=== PATIENT | female | born 1995 | race Caucasian/White ===

== ENCOUNTER 2016-12-16 12:22 | Emergency (ER) | payer OTHER ==
[~2016-12-16 12:22] MED LIST: METO10TA PO
[2016-12-16 13:01] VITALS: BP 118/57; PULSE 82
[2016-12-16 13:02] VITALS: RESP 18
--- NOTE | 2016-12-16 13:18 | PD ---
HPI Chief Complaint Left calf pain, and it feels like a have a bladder infection Date Seen: Dec 16, 2016 Time Seen: 13:00 Travel History International Travel<30 Days: No Contact w/Intl Traveler<30Days: No Known Affected Area: No History of Present Illness HPI 21-year-old 3 para 2 at 17 weeks 1 day gestation with twins who reports a 12 hour history of left calf pain. She denies any trauma to this area. She denies redness or swelling. She also feels like she might have a bladder infection because of lower abdominal pressure and urgency. She denies dysuria or hematuria. She associates nausea without vomiting. She's had no diarrhea, fever. She has found nothing that alleviates her symptoms. Para: 2 : 3 History Past Medical History Narrative Medical She has a history of depression for which she is to take medication. She is now not on medication. She reports feeling mildly depressed. Medical History: Denies Significant Hx Obstetric History Obstetric History 2 term vaginal deliveries without complication This is a twin gestation but we do not have documentation regarding the type of twins. Past Surgical History Surgical History: No Previous Surgery Family History Family History: Negative Social History Alcohol Use: No Tobacco Use: Yes (2 per day) Substance Abuse: No Allergies-Medications (Allergen,Severity, Reaction): Coded Allergies: No Known Allergies (Verified , 09/26/16) Home Meds Active Scripts Metoclopramide Hcl (Reglan)10 Mg Tab10 Mg PO Q6H PRN (NAUSEA) #7 TAB NAUSEA AND VOMITING Prov:Kaylie Monroe DO 09/26/16 Review of Systems Except as stated in HPI: all other systems reviewed are Neg Physical Exam Narrative GENERAL: Well-nourished, well-developed patient. SKIN: Warm and dry. HEAD: Normocephalic and atraumatic. EYES: No scleral icterus. No injection or drainage. ENT: No nasal drainage noted. Mucous membranes pink. Airway patent. NECK: Supple, trachea midline. No JVD. CARDIOVASCULAR: Regular rate and rhythm without murmurs, gallops, or rubs. RESPIRATORY: Breath sounds equal bilaterally. No accessory muscle use. BREASTS: Bilateral exam showed no masses , no retractions, no nipple discharge. ABDOMEN/GI: Abdomen soft, non-tender, bowel sounds present, no rebound, no guarding Gravid to [-] weeks size Fundal Height: [-u] GENITOURINARY: External Genitalia: intact and normal in appearance BUS glands: [-] Cervix: [-] Dilatation: [-] Effacement: [-] Station: [-] Presentation: [-] Membranes: [intact or ruptured] Uterine Contractions: [-] FHT's: Category: [-] Baseline: [-Viable twin gestation by ultrasound,] Reactive: [-] Variability: [-] Decels: [-] EXTREMITIES: No cyanosis or edema. The left calf is tender. There is a bruise on the medial aspect of the left knee. BACK: Nontender without obvious deformity. No CVA tenderness. NEUROLOGICAL: Awake and alert. Motor and sensory grossly within normal limits. Five out of 5 muscle strength in all muscle groups. Normal speech. Data Data Vital Signs Reviewed: Yes Orders Vital Signs (Adult) .ON ADMISSION (12/16/16 12:55) Urinalysis - C+S If Indicated (12/16/16 12:55) Us Leg Venous Doppler (12/16/16 ) MDM Medical Record Reviewed: Yes Narrative Course / MDM Assessment: Routine week twin gestation with left calf tenderness, rule out DVT and urinary symptoms, rule out UTI Plan: Venous Doppler of left lower extremity to rule out DVT Urinalysis Addendum: UA suggestive of UTI, empiric fosfomycin 3g Doppler study is normal Diagnosis Diagnosis: Primary Impression: Twin gestation in second trimester Additional Impressions: Smoking 1/2 pack a day or less UTI (urinary tract infection) Disposition: 01 DISCHARGE HOME Condition: Good Jose Gonzalez MD Dec 16, 2016 13:18
[2016-12-16 13:34] LABS: BLOOD, URINE NEG (NEG); COMMENT (UR) CULTURE INDICATED; CULTURE IF INDICATED CULTURE INDICATED; GLUCOSE,URINE NEG (NEG); KETONE, URINE NEG (NEG); MUCUS URINE FEW /lpf (OCC); NITRITE,URINE NEG (NEG); SQUAMOUS EPITHELIAL CELL URINE 1 /hpf (0-5); URINE COLOR LIGHT-YELLOW (YELLW/STRAW)
--- NOTE | 2016-12-16 14:27 | RADRPT ---
EXAM DATE/TIME: 12/16/2016 14:08 [facility] COMPARISON: No previous studies available for comparison. INDICATIONS : Left calf pain. MEDICAL HISTORY : . SURGICAL HISTORY : No significant surgical history. ENCOUNTER: Initial ACUITY: 2 day PAIN SCORE: 4/10 LOCATION: Left leg. TECHNIQUE: Venous ultrasound of the leg was performed from the inguinal ligament to the proximal calf. Real-mukesh e, color Doppler and spectral tracing, compression and augmentation techniques were used. FINDINGS: There is normal compressibility of the deep venous system from the inguinal region to the proximal ca lf. No echogenic clot is seen in the lumen of the common femoral, femoral, popliteal, and posterior tibial veins. There is a normal response of the venous system to proximal and distal augmentation an d respiration. CONCLUSION: Normal examination. Jose Vela MD on December 16, 2016 at 14:25 Board Certified Radiologist. This report was verified electronically.
== END 2016-12-16 15:05 | disposition home or self-care (01) ==
LOC: HOBED 12:22
DX: O23.42 Unspecified infection of urinary tract in pregnancy, second trimester (principal); O99.332 Smoking (tobacco) complicating pregnancy, second trimester; B96.20 Unspecified Escherichia coli [E. coli] as the cause of diseases classified elsewhere; Z3A.17 17 weeks gestation of pregnancy
CPT/HCPCS: 76815; 81001; 87077; 87086; 87186; 93971

== ENCOUNTER 2016-12-17 04:53 | Emergency (ER) | payer OTHER ==
[2016-12-17 04:54] VITALS: BP 138/77; PULSE 96; RESP 16; TEMP 98.2; O2SAT 97
--- NOTE | 2016-12-17 05:22 | PD ---
HPI Chief Complaint Bladder infection, I couldn't get my prescription Date Seen: Dec 17, 2016 Time Seen: 05:19 Travel History International Travel<30 Days: No Contact w/Intl Traveler<30Days: No Known Affected Area: No History of Present Illness HPI The patient was here earlier today and diagnosed with a UTI. She to her prescription to [facility] and was unable to get it filled so attempted to get her medicine at [facility] but they said they needed a new prescription. She returns for that prescription. No new symptoms have occurred since her last visit. Allergies-Medications (Allergen,Severity, Reaction): Coded Allergies: No Known Allergies (Verified , 09/26/16) Home Meds Active Scripts Metoclopramide Hcl (Reglan)10 Mg Tab10 Mg PO Q6H PRN (NAUSEA) #7 TAB NAUSEA AND VOMITING Prov:Kaylie Monroe DO 09/26/16 Physical Exam Narrative GENERAL: Well-nourished, well-developed patient. SKIN: Warm and dry. HEAD: Normocephalic and atraumatic. EYES: No scleral icterus. No injection or drainage. ENT: No nasal drainage noted. Mucous membranes pink. Airway patent. NECK: Supple, trachea midline. No JVD. CARDIOVASCULAR: Regular rate and rhythm without murmurs, gallops, or rubs. RESPIRATORY: Breath sounds equal bilaterally. No accessory muscle use. BREASTS: Bilateral exam showed no masses , no retractions, no nipple discharge. ABDOMEN/GI: Abdomen soft, non-tender, bowel sounds present, no rebound, no guarding Gravid to [-] weeks size Fundal Height: [-] GENITOURINARY: External Genitalia: intact and normal in appearance BUS glands: [-] Cervix: [-] Dilatation: [-] Effacement: [-] Station: [-] Presentation: [-] Membranes: [intact or ruptured] Uterine Contractions: [-] FHT's: Category: [-] Baseline: [-] Reactive: [-] Variability: [-] Decels: [-] EXTREMITIES: No cyanosis or edema. BACK: Nontender without obvious deformity. No CVA tenderness. NEUROLOGICAL: Awake and alert. Motor and sensory grossly within normal limits. Five out of 5 muscle strength in all muscle groups. Normal speech. MDM Medical Record Reviewed: Yes Narrative Course / MDM Assessment: Twins, UTI Plan: fosfomycin -3 g by mouth 1 Diagnosis Diagnosis: Primary Impression: UTI (urinary tract infection) Additional Impressions: Twin gestation in second trimester Smoking 1/2 pack a day or less Urinary urgency Disposition: 01 DISCHARGE HOME Condition: Good Jose Gonzalez MD Dec 17, 2016 05:22
== END 2016-12-17 05:32 | disposition home or self-care (01) ==
LOC: HOBED 04:53
DX: O23.42 Unspecified infection of urinary tract in pregnancy, second trimester (principal); O30.002 Twin pregnancy, unspecified number of placenta and unspecified number of amniotic sacs, second trimester; Z3A.00 Weeks of gestation of pregnancy not specified; R39.15 Urgency of urination; F17.210 Nicotine dependence, cigarettes, uncomplicated
CPT/HCPCS: 99283

== ENCOUNTER 2017-04-10 14:38 | Emergency (ER) | payer OTHER ==
[~2017-04-10 14:38] MED LIST changes: -AMOX500C PO; -CIPR0.3S EACH EAR
--- NOTE | 2017-04-10 15:29 | PD ---
HPI Travel History International Travel<30 Days: No Contact w/Intl Traveler<30Days: No Known Affected Area: No History of Present Illness HPI This patient is a 20-year-old 3 para 2001 EDC is May 24, 2017 presently at 33 weeks and 5 days with a diamniotic dichorionic twin gestation who was being seen in OB diagnostics today for an ultrasound when she reported feeling leakage of fluid and tightening in her lower abdomen She is sent over to the triage area for evaluation of possible rupture of membranes care with Dr. Balubena course is significant for urinary tract infection states both babies are active No regularity to the cramping and states she's been leaking for about a week History Past Medical History Narrative Medical No known drug allergies no major medical problems Obstetric History Obstetric History First baby born 2008 female infant weight 5 lbs. 9 oz. was post dates vaginal delivery Second baby born 2010 male infant weight 7 lbs. 14 oz. vaginal delivery both uncomplicated Past Surgical History Surgical History: No Previous Surgery Family History Narrative Family History Mother had cervical cancer Social History Alcohol Use: No Tobacco Use: No Substance Abuse: No Allergies-Medications (Allergen,Severity, Reaction): Coded Allergies: No Known Allergies (Verified , 09/26/16) Home Meds Active Scripts Metoclopramide Hcl (Reglan)10 Mg Tab10 Mg PO Q6H PRN (NAUSEA) #7 TAB NAUSEA AND VOMITING Prov:Kaylie Monroe DO 09/26/16 Review of Systems General / Constitutional: No: Fever, Weight Gain, Weight Loss, Chills, Other Eyes: No: Diploplia, Blurred Vision, Visual changes, Pain, Photophobia, Other HENT: No: Headaches, Vertigo, Dental Difficulties, Lightheadedness, Other Cardiovascular: No: Irregular Rhythm, Chest Pain or Discomfort, Palpitations, Tachycardia, Syncope, Varicosities, Edema, Cyanosis, Other Respiratory: No: Cough, Short of Breath, Wheezing, Other Gastrointestinal: Abdominal Pain Genitourinary: Other (watery discharge), No: Urgency, Frequency, Dysuria, Nocturia, Hematuria, Decreased Urinary Output, Oliguria, Hesitancy, Dribbling, Incontinence, Pelvic Pain, Dyspareunia, Discharge, Menorrhagia, Vaginal Bleeding Musculoskeletal: No: Limited ROM, Weakness, Cramping, Edema, Pain, Other Neurologic: No: Weakness, Dizziness, Syncope, Focal Abnormalities, Coordination Problem, Headache, Slurred Speech, Seizures, Other Psychiatric: No: Anxiety, Depression, Suicidal Ideations, Disorder of Thought, Mood Disorder, Substance Abuse, Homicidal Ideation, Other Physical Exam Narrative GENERAL: Well-nourished, well-developed patient. Alert oriented 3 and cooperative in no acute distress SKIN: Warm and dry. HEAD: Normocephalic and atraumatic. EYES: No scleral icterus. No injection or drainage. Conjunctiva are pink ENT: No nasal drainage noted. Mucous membranes pink. Airway patent. NECK: Supple, trachea midline. No JVD. CARDIOVASCULAR: Regular rate and rhythm without murmurs, gallops, or rubs. RESPIRATORY: Breath sounds equal bilaterally. No accessory muscle use. ABDOMEN/GI: Abdomen soft, non-tender, bowel sounds present, no rebound, no guarding size greater than dates due to twins Gravid to [-] weeks size size greater than dates Fundal Height: [-] GENITOURINARY: Speculum exam no gross fluid no blood pale greenish discharge wet prep done External Genitalia: intact and normal in appearance BUS glands: [-] Cervix: [-] Midline slightly posterior Dilatation: [-] External os is 1 internal os is closed Effacement: [-] 0 Station: [-] Twin A is vertex and ballotable Presentation: [-] Vertex/breech Membranes: [intact amnisure negative Uterine Contractions: [-] Occasional contraction FHT's: Category: [-] 12/02 Baseline: [-] 145/140 Reactive: [-] +/+ Variability: [-] Moderate variability for both Decels: [-] Single small V-shaped marking seen unsure if this was a deceleration EXTREMITIES: No cyanosis or edema. NEUROLOGICAL: Awake and alert. Motor and sensory grossly within normal limits. Five out of 5 muscle strength in all muscle groups. Normal speech. Data Data Vital Signs Reviewed: Yes (initial blood pressure 137/90 pulse 105) Labs Ultrasound was done baby a measuring at 32 weeks 3 days deepest pocket 4.1 cm estimated weight of 4 lbs. 1 oz. equaling 1870 29 percentile Baby B weight 2303 g equaling 5 lbs. 1 oz. 59th percentile deepest pocket 11.3 polyhydramnios for twin B The recommendations her start weekly testing at 36 weeks Rescan for growth in 3 weeks Daily kick counts MDM Medical Record Reviewed: Yes Interpretation(s) 20-year-old at 33 weeks 5 days Diamniotic dichorionic twin gestation a is vertex B is breech 19% discordant growth Twin B with polyhydramnios amnisure is negative Category 1 tracing for both babies No clinical evidence of labor Discussed with Dr. Balbuena Rule out vaginitis Narrative Course / MDM Dr. Balbuena present on labor and delivery Reviewed this patient with the nurses Stated patient may be discharged home Follow up in the office 24-48 hours Plan External monitoring By mouth fluid hydration Wet prep amnisure Diagnosis Diagnosis: Primary Impression: 33 weeks gestation of Additional Impressions: Dichorionic diamniotic twin gestation Qualified Code: O30.043 - Dichorionic diamniotic twin in third trimester Nasim Hernandez' contraction Disposition: 01 DISCHARGE HOME Condition: Stable Frida Correa MD April 10, 2017 15:29
[2017-04-10 17:18] LABS: BLOOD, URINE NEG (NEG); GLUCOSE,URINE NEG (NEG); KETONE, URINE NEG (NEG); MUCUS URINE FEW /lpf (OCC); NITRITE,URINE NEG (NEG); PH, URINE 6.5 (5.0-8.5); SQUAMOUS EPITHELIAL CELL URINE 1 /hpf (0-5); URINE COLOR YELLOW (YELLW/STRAW)
[2017-04-10 17:19] LABS: COMMENT (UR) CULT NOT INDICATED; CULTURE IF INDICATED CULT NOT INDICATED
== END 2017-04-10 17:49 | disposition home or self-care (01) ==
LOC: HOBED 14:38
DX: O47.03 False labor before 37 completed weeks of gestation, third trimester (principal); O30.043 Twin pregnancy, dichorionic/diamniotic, third trimester; Z3A.33 33 weeks gestation of pregnancy
CPT/HCPCS: 59025; 81001; 84112; 87210

== ENCOUNTER → 2017-04-10 | Outpatient (CLI) | payer OTHER ==
[~2017-04-10] MED LIST changes: +AMOX500C PO; +CIPR0.3S EACH EAR
== END ==
LOC: HPND 13:42
PROVIDERS: ATTEND Obstetrics & Gynecology
DX: O30.003 Twin pregnancy, unspecified number of placenta and unspecified number of amniotic sacs, third trimester (principal)
CPT/HCPCS: 76816

== ENCOUNTER 2017-04-29 07:00 | Inpatient (IN) | payer OTHER ==
[2017-04-29] VITALS (16 sets, daily range): BP systolic 138–168; BP diastolic 80–108; PULSE 70–92; RESP 16–20; TEMP 97.8–98.5; O2SAT 100
[~2017-04-29] VITALS: Ht 160 cm; Wt 90.0 kg
--- NOTE | 2017-04-29 07:25 | PD ---
HPI Chief Complaint: ENT Complaint Time Seen by Provider: 07:25 Travel History International Travel<30 days: No Contact w/Intl Traveler<30days: No Traveled to known affect area: No History of Present Illness HPI 21-year-old female, approximately 37 weeks with twins, presents to the emergency Department with complaint of bilateral ear pain 4 days. Has no complaints; denies abdominal cramping, abdominal pain, vaginal bleeding. Reports drainage from the left ear. Denies recent swimming. Denies fever, vomiting. Reports nausea that has been consistent throughout . Denies nasal congestion, sore throat, cough. Reports headache. Has not taken any medications or tried any treatments to alleviate her symptoms. Patient's blood pressure is elevated in the ER. She states that she has not had any problems with elevated blood pressure throughout her . Her automobile taillight assembler is Dr. Chavez. She has no other medical complaints. No known allergies. No other modifying factors or associated signs and symptoms. PFSH Past Medical History Anxiety: Yes (PANIC ATTACKS) Developmental Delay: No Diminished Hearing: No Immunizations Current: Yes Tetanus Vaccination: < 5 Years Influenza Vaccination: No ?: LMP: 08/29/16 : 3 Para: 2 Ovarian Cysts: Yes Tubal Ligation: No Past Surgical History Surgical History: No Previous Surgery Social History Alcohol Use: No Tobacco Use: No Substance Use: No Allergies-Medications (Allergen,Severity, Reaction): Coded Allergies: No Known Allergies (Verified , 09/26/16) Reported Meds & Prescriptions Reported Meds & Active Scripts Active Ciprodex Otic Drops (Ciprofloxacin-Dexamethasone Otic Drops) 0.3-0.1% Susp 4 Drop EACH EAR BID 7 Days Review of Systems Except as stated in HPI: all other systems reviewed are Neg Physical Exam Narrative GENERAL: Well-nourished, well-developed female patient, in no acute distress; afebrile, nontoxic-appearing; SKIN: Warm and dry. No rash. HEAD: Atraumatic. Normocephalic. EYES: Pupils equal and round. No scleral icterus. No injection or drainage. EARS: Bilateral pinnae appear within normal limits; bilateral external canals with purulent drainage, mild erythema and mild edema. Bilateral tympanic membrane without erythema; with dullness; without loss of landmarks or perforation. ENT: Mucosa pink and moist. Oral Pharynx without erythema; without edema or exudates. No uvular edema. No uvular, palatal, or tonsillar deviation. Airway patent. NECK: Trachea midline. No lymphadenopathy. CARDIOVASCULAR: Regular rate and rhythm. No murmur appreciated. RESPIRATORY: No accessory muscle use. Clear to auscultation. Breath sounds equal bilaterally. GASTROINTESTINAL: Rounded. MUSCULOSKELETAL: No obvious deformities. No clubbing. No cyanosis. No edema. NEUROLOGICAL: Awake and alert. Oriented 3. No obvious cranial nerve deficits. Motor grossly within normal limits. Normal speech. Moves all extremities. 5/5 strength to all extremities. PSYCHIATRIC: Appropriate mood and affect; insight and judgment normal. Data Data Last Documented VS Vital Signs Date Time Temp Pulse Resp B/P Pulse Ox O2 Delivery O2 Flow Rate FiO2 04/29/17 07:22 77 162/100 04/29/17 07:02 97.8 20 100 Room Air MDM Medical Decision Making Medical Screen Exam Complete: Yes Emergency Medical Condition: Yes Medical Record Reviewed: Yes Differential Diagnosis Otitis externa, otitis media, foreign body, cerumen impaction Narrative Course 21-year-old female, who is approximately 37 weeks with twins, physical exam consistent with bilateral otitis externa. Patient's blood pressure is elevated in the ER. She reports headache but associates it with her bilateral ear pain. 0730: I called and spoke with Ju, labor and delivery nurse, in regards to the patient's blood pressure and the patient will be transported to labor and delivery after medically cleared for further evaluation. 0741: Patient medically cleared and transported to labor and delivery for evaluation of increased blood pressure. Ciprodex prescription provided. Diagnosis Primary Impression: Otitis externa Qualified Code: H60.93 - Otitis externa of both ears, unspecified chronicity, unspecified type Referrals: Sock Examiner Primary Care Physician Patient Instructions: General Instructions, Otitis Externa (ED) Med/Other Pt SpecificInfo: Prescription(s) given Scripts Ciprofloxacin-Dexamethasone Otic Drops (Ciprodex Otic Drops)0.3-0.1% Susp4 Drop EACH EAR BID 7 Days Ref 0 Prov:Jayashree Plaza 04/29/17 Jayashree Plaza April 29, 2017 07:25
[2017-04-29] MEDS ORDERED: AMOX500C PO (07:35)
[2017-04-29] MEDS ORDERED: CIPR0.3S EACH EAR (07:35)
[2017-04-29] MEDS ORDERED: ACETAMINOPHEN 325 MG TAB PO ONE (09:00)
--- NOTE | 2017-04-29 09:08 | PD ---
HPI Chief Complaint Bilateral ear pain Date Seen: April 29, 2017 Time Seen: 09:04 Travel History International Travel<30 Days: No Contact w/Intl Traveler<30Days: No Known Affected Area: No History of Present Illness HPI 21-year-old who is at 36 weeks 3 days with dichorionic diamniotic twin gestation went to the main ER due to bilateral ear pain and was diagnosed with bilateral otitis externa. Patient was having quite a bit of pain at that time of a blood pressure was 160/100 and she was brought appear for evaluation. Patient denies headache, edema, abdominal pain, contractions. Patient states she has good movement patient is scheduled for section with tubal ligation Para: 2 : 3 History Past Medical History Medical History: Denies Significant Hx Obstetric History Obstetric History Spontaneous vaginal delivery 2 Past Surgical History Surgical History: No Previous Surgery Family History Family History: Negative Social History Alcohol Use: No Tobacco Use: No Substance Abuse: No Allergies-Medications (Allergen,Severity, Reaction): Coded Allergies: No Known Allergies (Verified , 09/26/16) Home Meds Active Scripts Ciprofloxacin-Dexamethasone Otic Drops (Ciprodex Otic Drops)0.3-0.1% Susp4 Drop EACH EAR BID 7 Days Ref 0 Prov:JaimieericJayashree SURVEYOR 04/29/17 Review of Systems HENT: Other (bilateral ear pain) Physical Exam Vital Signs Date Time Temp Pulse Resp B/P Pulse Ox O2 Delivery O2 Flow Rate FiO2 04/29/17 07:22 77 162/100 04/29/17 07:02 97.8 92 20 168/108 100 Room Air Narrative GENERAL: Well-nourished, well-developed patient. SKIN: Warm and dry. HEAD: Normocephalic and atraumatic. EYES: No scleral icterus. No injection or drainage. ENT: Pain with palpation of both ears, some drainage coming out of the external canal of the left ear NECK: Supple, trachea midline. No JVD. CARDIOVASCULAR: Regular rate and rhythm without murmurs, gallops, or rubs. RESPIRATORY: Breath sounds equal bilaterally. No accessory muscle use. BREASTS: Bilateral exam showed no masses , no retractions, no nipple discharge. ABDOMEN/GI: Abdomen soft, non-tender, bowel sounds present, no rebound, no guarding Gravid to [-44] weeks size Fundal Height: [-] GENITOURINARY: Deferred External Genitalia: intact and normal in appearance BUS glands: [-] Cervix: [-] Dilatation: [-] Effacement: [-] Station: [-] Presentation: [-] Membranes: [intact or ruptured] Uterine Contractions: [-] FHT's: Difficult to keep both babies on the tracing, after hand holding the transducer's we're able to get 2 different heart rates seem to have moderate variability, twin A with a baseline of 140, twin B with a baseline of 145 Category: [-1] Baseline: [140, 145-] Reactive: [-] Reactive 2 Variability: [-] Moderate Decels: [-] No decelerations noted EXTREMITIES: No cyanosis or edema. BACK: Nontender without obvious deformity. No CVA tenderness. NEUROLOGICAL: Awake and alert. Motor and sensory grossly within normal limits. Five out of 5 muscle strength in all muscle groups. Normal speech. Data Data Vital Signs Reviewed: Yes (blood pressure hears been 133/89, 130/89) Orders Vital Signs (Adult) .ON ADMISSION (04/29/17 09:00) ^ Labor Status (04/29/17 09:00) Urinalysis - C+S If Indicated (04/29/17 09:00) Diet Liquid (04/29/17 Breakfast) Cbc No Diff, Includes Plts (04/29/17 09:00) Uric Acid (04/29/17 09:00) Basic Metabolic Panel (Bmp) (04/29/17 09:00) Acetaminophen (Tylenol) (04/29/17 09:00) Labs Laboratory Tests Test 04/29/17 04/29/17 08:15 09:00 Urine Color YELLOW Urine Turbidity HAZY Urine pH 6.5 Urine Specific [place] 1.020 Urine Protein 30 mg/dL Urine Glucose (UA) NEG mg/dL Urine Ketones NEG mg/dL Urine Occult Blood NEG Urine Nitrite NEG Urine Bilirubin NEG Urine Urobilinogen LESS THAN 2.0 MG/DL Urine Leukocyte Esterase NEG Urine RBC 1 /hpf Urine WBC 1 /hpf Urine Squamous Epithelial 8 /hpf Cells Urine Hyaline Casts 1 /lpf Urine Mucus FEW /lpf Microscopic Urinalysis Comment CULT NOT INDICATED White Blood Count 9.5 TH/MM3 Red Blood Count 3.82 MIL/MM3 Hemoglobin 11.6 GM/DL Hematocrit 34.0 % Mean Corpuscular Volume 88.9 FL Mean Corpuscular Hemoglobin 30.4 PG Mean Corpuscular Hemoglobin 34.2 % Concent Red Cell Distribution Width 13.7 % Platelet Count 167 TH/MM3 Mean Platelet Volume 8.1 FL Sodium Level 138 MEQ/L Potassium Level 4.2 MEQ/L Chloride Level 105 MEQ/L Carbon Dioxide Level 24.2 MEQ/L Anion Gap 9 MEQ/L Blood Urea Nitrogen 7 MG/DL Creatinine 0.58 MG/DL Estimat Glomerular Filtration 129 ML/MIN Rate Random Glucose 80 MG/DL Uric Acid 5.6 MG/DL Calcium Level 7.9 MG/DL [facility] Medical Record Reviewed: Yes Plan 36 weeks with di/di twin gestation Elevated BP, labs normal with proteinuria on UA 23hr obs, 24 hr protein collection and observation of BP Discussed with Dr Paulino Diagnosis Diagnosis: Primary Impression: Otitis externa Qualified Code: H60.93 - Otitis externa of both ears, unspecified chronicity, unspecified type Additional Impressions: 36 weeks gestation of Twin gestation, dichorionic diamniotic Elevated blood pressure affecting in third trimester, antepartum Bilateral otitis externa Condition: Good Scripts Ciprofloxacin-Dexamethasone Otic Drops (Ciprodex Otic Drops)0.3-0.1% Susp4 Drop EACH EAR BID 7 Days Ref 0 Prov:Jayashree PlazaP 04/29/17 Referrals: Jacker Feeder Primary Care Physician Patient Instructions: General Instructions, Otitis Externa (ED) Additional Instructions: Take antibiotics as prescribed and complete full course Ibuprofen or Tylenol as directed and as needed to reduce pain and fever [id number] antihistamines or decongestants as directed and as needed for symptom management Avoid getting water in the ears Do not put anything in the ears; including Q-tips Follow-up with primary care provider Return to the emergency department immediately with worsening of symptoms Departure Forms: Tests/Procedures Argelia Tamayo MD April 29, 2017 09:07
[2017-04-29 09:13] LABS: MEAN CELL VOLUME 88.9 FL (80.0-100.0); MEAN CORPUSCULAR HEMOGLOBIN 30.4 PG (27.0-34.0); MEAN CORPUSCULAR HGB CONC 34.2 % (32.0-36.0); PLATELET COUNT 167 TH/MM3 (150-450); RED BLOOD COUNT 3.82 MIL/MM3 (4.00-5.30); RED CELL DISTRIBUTION WIDTH 13.7 % (11.6-17.2); REVIEW FLAG FINAL; WHITE BLOOD COUNT 9.5 TH/MM3 (4.0-11.0)
[2017-04-29 09:26] LABS: BLOOD, URINE NEG (NEG); GLUCOSE,URINE NEG (NEG); HYALINE CAST, URINE 1 /lpf (RARE); KETONE, URINE NEG (NEG); MUCUS URINE FEW /lpf (OCC); NITRITE,URINE NEG (NEG); PH, URINE 6.5 (5.0-8.5); SQUAMOUS EPITHELIAL CELL URINE 8 /hpf (0-5); URINE COLOR YELLOW (YELLW/STRAW)
[2017-04-29 09:28] LABS: COMMENT (UR) CULT NOT INDICATED; CULTURE IF INDICATED CULT NOT INDICATED
[2017-04-29 09:34] LABS: BICARBONATE 24.2 MEQ/L (21.0-32.0); POTASSIUM 4.2 MEQ/L (3.5-5.1); URIC ACID 5.6 MG/DL (2.6-6.0)
[2017-04-29] MEDS: LACTATED RINGER'S 1000 ML INJ 1,000 ML IV SCH (09:52)
[2017-04-29] MEDS ORDERED: ONDANSETRON HCL 4 MG/2 ML VIAL IV PRN (10:00)
[2017-04-29] MEDS ORDERED: SODIUM CHLORIDE 0.9% FLUSH 10 ML FLUSH IV FLUSH PRN (10:00)
[2017-04-29] MEDS ORDERED: ACETAMINOPHEN 325 MG TAB PO PRN (10:00)
[2017-04-29] MEDS ORDERED: ZOLPIDEM TARTRATE 5 MG TAB PO PRN (10:00)
--- NOTE | 2017-04-29 11:05 | HHI.HP ---
HPI Chief Complaint ostitis media, hypertension Date Seen: April 29, 2017 Time Seen: 11:00 Travel History International Travel<30 Days: No Contact w/Intl Traveler<30Days: No Known Affected Area: No History of Present Illness HPI otitis externa and doing well. she Para: 2 : 3 History Past Medical History Medical History: Denies Significant Hx Obstetric History Obstetric History x2 and current twins Past Surgical History Surgical History: No Previous Surgery Family History Family History: Negative Social History Alcohol Use: No Tobacco Use: No Substance Abuse: No Allergies-Medications (Allergen,Severity, Reaction): Coded Allergies: No Known Allergies (Verified , 09/26/16) Home Meds Active Scripts Ciprofloxacin-Dexamethasone Otic Drops (Ciprodex Otic Drops)0.3-0.1% Susp4 Drop EACH EAR BID 7 Days Ref 0 Prov:Jayashree Plaza COMPUTERIZED TABLE CUTTER 04/29/17 Review of Systems Except as stated in HPI: all other systems reviewed are Neg Physical Exam Vital Signs Date Time Temp Pulse Resp B/P Pulse Ox O2 Delivery O2 Flow Rate FiO2 04/29/17 07:22 77 162/100 04/29/17 07:02 97.8 92 20 168/108 100 Room Air Narrative GENERAL: Well-nourished, well-developed patient. SKIN: Warm and dry. HEAD: Normocephalic and atraumatic. EYES: No scleral icterus. No injection or drainage. ENT: No nasal drainage noted. Mucous membranes pink. Airway patent. NECK: Supple, trachea midline. No JVD. CARDIOVASCULAR: Regular rate and rhythm without murmurs, gallops, or rubs. RESPIRATORY: Breath sounds equal bilaterally. No accessory muscle use. BREASTS: Bilateral exam showed no masses , no retractions, no nipple discharge. ABDOMEN/GI: Abdomen soft, non-tender, bowel sounds present, no rebound, no guarding Gravid to [-] weeks size Fundal Height: [-] GENITOURINARY: External Genitalia: intact and normal in appearance BUS glands: [-] Cervix: [-] Dilatation: [-] Effacement: [-] Station: [-] Presentation: [-] Membranes: [intact or ruptured] Uterine Contractions: [-] FHT's: Category: [-] Baseline: [-] Reactive: [-] Variability: [-] Decels: [-] EXTREMITIES: No cyanosis or edema. BACK: Nontender without obvious deformity. No CVA tenderness. NEUROLOGICAL: Awake and alert. Motor and sensory grossly within normal limits. Five out of 5 muscle strength in all muscle groups. Normal speech. Data Data Vital Signs Reviewed: Yes Orders Vital Signs (Adult) .ON ADMISSION (04/29/17 09:00) ^ Labor Status (04/29/17 09:00) Urinalysis - C+S If Indicated (04/29/17 09:00) Diet Liquid (04/29/17 Breakfast) Cbc No Diff, Includes Plts (04/29/17 09:00) Uric Acid (04/29/17 09:00) Basic Metabolic Panel (Bmp) (04/29/17 09:00) Acetaminophen (Tylenol) (04/29/17 09:00) Place In Observation (04/29/17 ) Activity Bed Rest (04/29/17 09:52) Intake + Output Q1H (04/29/17 09:52) Notify Parameters (04/29/17 09:52) Heart CONTINUOUS (04/29/17 09:52) ^ Check Deep Tendon Reflexes Q1H (04/29/17 09:52) Lactated Ringer's 1000 Ml Inj (Lr 1000 M (04/29/17 09:52) Sodium Chloride 0.9% Flush (Ns Flush) (04/29/17 10:00) Sodium Chloride 0.9% Flush (Ns Flush) (04/29/17 21:00) Acetaminophen (Tylenol) (04/29/17 10:00) Ondansetron Inj (Zofran Inj) (04/29/17 10:00) Qzuujlhz-Gcs-Jmzlo-Iron Prenat (Stuartna (04/30/17 09:00) Zolpidem (Ambien) (04/29/17 10:00) Total Protein 24hr Urine (04/29/17 09:52) Us Ob Bpp Wo Nst (04/29/17 09:52) Zvvknpii-Xvpurqry-Jf Otic Soln (Cortispo (04/29/17 21:00) Ob (2e) Additional Admit Info (04/29/17 09:59) Labs Laboratory Tests Test 04/29/17 04/29/17 08:15 09:00 Urine Color YELLOW Urine Turbidity HAZY Urine pH 6.5 Urine Specific [place] 1.020 Urine Protein 30 Urine Glucose (UA) NEG Urine Ketones NEG Urine Occult Blood NEG Urine Nitrite NEG Urine Bilirubin NEG Urine Urobilinogen LESS THAN 2.0 Urine Leukocyte Esterase NEG Urine RBC 1 Urine WBC 1 Urine Squamous Epithelial 8 Cells Urine Hyaline Casts 1 Urine Mucus FEW Microscopic Urinalysis Comment CULT NOT INDICATED White Blood Count 9.5 Red Blood Count 3.82 Hemoglobin 11.6 Hematocrit 34.0 Mean Corpuscular Volume 88.9 Mean Corpuscular Hemoglobin 30.4 Mean Corpuscular Hemoglobin 34.2 Concent Red Cell Distribution Width 13.7 Platelet Count 167 Mean Platelet Volume 8.1 Sodium Level 138 Potassium Level 4.2 Chloride Level 105 Carbon Dioxide Level 24.2 Anion Gap 9 Blood Urea Nitrogen 7 Creatinine 0.58 Estimat Glomerular Filtration 129 Rate Random Glucose 80 Uric Acid 5.6 Calcium Level 7.9 Assessment/Plan Problem List: (1) Twin gestation, dichorionic diamniotic (2) 36 weeks gestation of (3) Otitis externa Assessment and Plan hypertension for 24 hour urine Blanco Paulino MD April 29, 2017 11:04
[2017-04-29] MEDS: NEOMYCIN/POLYMYXIN/HYDROCORT OTIC SOLN 10 ML BTL EACH EAR SCH ×4 (12:15→21:00)
[2017-04-29] MEDS: SODIUM CHLORIDE 0.9% FLUSH 10 ML FLUSH IV FLUSH SCH (21:00)
[2017-04-30] VITALS (27 sets, daily range): BP systolic 123–157; BP diastolic 67–110; PULSE 67–98; RESP 18; TEMP 97.7–98.8
[2017-04-30 04:49] LABS: ALT (GPT) 11 U/L (10-53); ANION GAP 7 MEQ/L (5-15); AST (GOT) 15 U/L (15-37); BICARBONATE 26.7 MEQ/L (21.0-32.0); BLOOD UREA NITROGEN 5 MG/DL (7-18); CHLORIDE 106 MEQ/L (98-107); GLOMERULAR FILTRATION RATE 153 ML/MIN (>89); POTASSIUM 4.2 MEQ/L (3.5-5.1); SODIUM (NA) 140 MEQ/L (136-145)
[2017-04-30 04:51] LABS: ALKALINE PHOSPHATASE 166 U/L (45-117); TOTAL BILIRUBIN ADULT 0.3 MG/DL (0.2-1.0)
[2017-04-30] MEDS: MULTIVIT/MIN/PREN/FOL AC/IRON PRENATAL TAB PO SCH (09:00)
[2017-04-30] MEDS: SODIUM CHLORIDE 0.9% FLUSH 10 ML FLUSH IV FLUSH SCH ×2 (09:00→21:00)
[2017-04-30] MEDS: NEOMYCIN/POLYMYXIN/HYDROCORT OTIC SOLN 10 ML BTL EACH EAR SCH ×4 (09:35→22:05)
[2017-04-30 12:22] LABS: URINE TOTAL PROTEIN TIMED 17.6 MG/DL
--- NOTE | 2017-04-30 12:23 | PD.OB.ANTE ---
Subjective Diagnosis: (1) Twin gestation, dichorionic diamniotic (2) 36 weeks gestation of (3) Otitis externa Interval History Pt feeling less ear pain,good fm, occ ctx, no headache, no blurred vision, no other co Objective Vital Signs Vital Signs Date Time Temp Pulse Resp B/P Pulse Ox O2 Delivery O2 Flow Rate FiO2 04/30/17 08:40 75 04/30/17 08:35 75 04/30/17 08:30 76 04/30/17 08:25 71 04/30/17 08:20 70 04/30/17 08:15 70 04/30/17 08:10 67 04/30/17 08:05 69 04/30/17 08:00 73 04/30/17 08:00 18 04/30/17 07:55 69 04/30/17 07:48 67 140/81 04/30/17 07:47 69 151/98 04/30/17 05:44 72 123/67 04/30/17 05:43 73 139/101 04/30/17 02:47 69 150/93 04/30/17 02:46 81 156/110 04/30/17 02:44 80 157/102 04/30/17 00:15 18 04/30/17 00:12 70 146/83 04/29/17 22:50 75 04/29/17 22:45 77 04/29/17 22:40 72 04/29/17 22:35 73 04/29/17 22:30 71 04/29/17 22:25 73 04/29/17 22:15 18 04/29/17 22:14 70 146/93 04/29/17 20:00 98.5 18 04/29/17 19:53 88 139/94 04/29/17 16:27 16 04/29/17 16:26 98.3 04/29/17 16:25 85 140/80 Lab & Micro Results Test 04/30/17 04/30/17 04:09 11:30 Sodium Level 140 MEQ/L Potassium Level 4.2 MEQ/L Chloride Level 106 MEQ/L Carbon Dioxide Level 26.7 MEQ/L Anion Gap 7 MEQ/L Blood Urea Nitrogen 5 MG/DL Creatinine 0.50 MG/DL Estimat Glomerular Filtration 153 ML/MIN Rate Random Glucose 74 MG/DL Calcium Level 8.1 MG/DL Total Bilirubin 0.3 MG/DL Aspartate Amino Transf 15 U/L (AST/SGOT) Alanine Aminotransferase 11 U/L (ALT/SGPT) Alkaline Phosphatase 166 U/L Total Protein 6.2 GM/DL Albumin 2.5 GM/DL Urine Total Volume 24 Hours 1900 ML Physical Exam GENERAL: Well-nourished, well-developed patient. CARDIOVASCULAR: Regular rate and rhythm without murmurs, gallops, or rubs. RESPIRATORY: Breath sounds equal bilaterally. No accessory muscle use. ABDOMEN/GI: Abdomen soft, non-tender. Fundus: [-] GENITOURINARY: External Genitalia: intact and normal in appearance Cervix: [-] Dilatation: [-] Effacement: [-] Station: [-] Presentation: [-] Membranes: [-] Uterine Contractions: [-] FHT's: Category: [-] Baseline: [-] Reactive: [-] Variability: [-] Decels: [-] EXTREMITIES: No cyanosis or edema, non-tender, without signs of DVT. Assessment and Plan Problem List: (1) Twin gestation, dichorionic diamniotic Status: Acute (2) 36 weeks gestation of Status: Acute (3) Otitis externa Status: Acute Assessment and Plan 21 yo wf at 36 wks 1 dy twin gestation with elevated BP and 24 hour urine pending...discussed with pt possible need for induction or c/s for dx of preeclampsia..pt wants labor if both babies are vertex...favorable cvx in office last wk with dilation of 2-3 cms...will make decision based on urine results. Nini Hinton MD April 30, 2017 12:22
[2017-04-30] MEDS: LACTATED RINGER'S 1000 ML INJ 1,000 ML IV SCH ×2 (12:25→21:58)
[2017-05-01] VITALS (66 sets, daily range): BP systolic 123–166; BP diastolic 74–109; PULSE 72–136; RESP 18–20; TEMP 98–98.8
[2017-05-01] MEDS ORDERED: CITRIC ACID-SODIUM CITRATE LIQ 30 ML UDC PO SCH (04:45)
[2017-05-01] MEDS ORDERED: OXYTOCIN 30 UNITS 500ML PREMIX IV ONE (04:45)
[2017-05-01] MEDS ORDERED: LIDOCAINE HCL 1% 50 ML VIAL I-DERMAL PRN (04:45)
[2017-05-01] MEDS ORDERED: LIDOCAINE HCL 1% 50 ML VIAL INFIL PRN (04:45)
[2017-05-01] MEDS ORDERED: LACTATED RINGER'S 1000 ML BOLUS IV PRN (04:45)
[2017-05-01] MEDS ORDERED: MINERAL OIL 10 ML VIAL TOPICAL PRN (04:45)
[2017-05-01] MEDS ORDERED: NS 1000 ML IV PRN (04:45)
[2017-05-01] MEDS ORDERED: OXYTOCIN 30 UNITS/NS 500ML PREMIX IV SCH (05:00)
[2017-05-01] MEDS: NS 500 ML BOLUS IV PRN ×2 (05:42→05:43)
[2017-05-01] MEDS: LACTATED RINGER'S 1000 ML IV SCH ×2 (05:42→12:44)
[2017-05-01 05:46] LABS: BASOPHIL % 0.1 % (0.0-2.0); EOSINOPHIL % 0.5 % (0.0-4.0); HEMATOCRIT 37.5 % (35.0-46.0); HEMO FLAGS DIFF FINAL; LYMPH % 21.3 % (9.0-44.0); LYMPHOCYTE # 2.1 TH/MM3 (1.0-4.8); MEAN CELL VOLUME 90.9 FL (80.0-100.0); MEAN CORPUSCULAR HEMOGLOBIN 30.5 PG (27.0-34.0); MEAN CORPUSCULAR HGB CONC 33.5 % (32.0-36.0); MONO % 5.9 % (0.0-8.0); NEUT % 72.2 % (16.0-70.0); PLATELET COUNT 184 TH/MM3 (150-450); RED BLOOD COUNT 4.13 MIL/MM3 (4.00-5.30); RED CELL DISTRIBUTION WIDTH 13.7 % (11.6-17.2); WHITE BLOOD COUNT 9.7 TH/MM3 (4.0-11.0)
[2017-05-01 06:11] LABS: ALT (GPT) 14 U/L (10-53); ANION GAP 10 MEQ/L (5-15); AST (GOT) 14 U/L (15-37); BICARBONATE 23.5 MEQ/L (21.0-32.0); BLOOD UREA NITROGEN 6 MG/DL (7-18); CHLORIDE 106 MEQ/L (98-107); GLOMERULAR FILTRATION RATE 117 ML/MIN (>89); POTASSIUM 4.1 MEQ/L (3.5-5.1); SODIUM (NA) 139 MEQ/L (136-145)
[2017-05-01 06:12] LABS: ALKALINE PHOSPHATASE 183 U/L (45-117); TOTAL BILIRUBIN ADULT 0.3 MG/DL (0.2-1.0)
[2017-05-01] MEDS ORDERED: fentaNYL 2MCG-BUPIV 0.125% INJ 100 ML ONE (07:20)
[2017-05-01] MEDS ORDERED: ePHEDrine/NS 25 MG/5 ML SYR ONE (07:21)
--- NOTE | 2017-05-01 08:16 | PD.LABORPN ---
Subjective Subjective Pt co some contractions, good fm, no headache Objective Vital Signs Vital Signs Date Time Temp Pulse Resp B/P Pulse Ox O2 Delivery O2 Flow Rate FiO2 05/01/17 07:51 72 145/90 05/01/17 07:50 75 05/01/17 07:45 83 05/01/17 07:15 18 05/01/17 07:11 87 147/104 05/01/17 07:10 98.1 05/01/17 07:10 78 05/01/17 07:00 93 05/01/17 06:55 85 05/01/17 06:40 82 05/01/17 06:38 133/78 05/01/17 06:25 96 05/01/17 06:20 91 05/01/17 06:10 81 05/01/17 05:59 85 141/103 05/01/17 05:40 84 05/01/17 05:39 98.7 18 05/01/17 05:35 85 05/01/17 05:28 139/96 05/01/17 04:47 18 Objective Pelvic Exam: Cervix: 4-5/70/-2 Dilatation: [-] Effacement: [-] Station: [-] Presentation: [-] Membranes: AROM clear fluid Uterine Contractions: ctxs q 4-6 min FHT's: Category:A- reactive with a baseline 140's B - reactive with a baseline of 150's Baseline: [-] Reactive: [-] Variability: [-] Decels: [-] Assessment/Plan Problem List: (1) Twin gestation, dichorionic diamniotic (2) 36 weeks gestation of (3) Otitis externa Assessment and Plan twin gestation at 36 wks 5 dys with mild preeclampsia for induction - us today reveals vtx/oblique with head down baby b -plan for labor with epidural Nini Hinton MD May 01, 2017 08:16
[2017-05-01] MEDS: MULTIVIT/MIN/PREN/FOL AC/IRON PRENATAL TAB PO SCH (08:47)
[2017-05-01] MEDS: NEOMYCIN/POLYMYXIN/HYDROCORT OTIC SOLN 10 ML BTL EACH EAR SCH ×2 (08:47→12:45)
[2017-05-01] MEDS ORDERED: ePHEDrine/NS 25 MG/5 ML SYR IV PRN (09:15)
[2017-05-01] MEDS ORDERED: DO NOT ADMINISTER ANTICOAGULANTS PRN (09:15)
[2017-05-01] MEDS ORDERED: NO SYSTEM NARCOTICS PRN (09:15)
[2017-05-01] MEDS: fentaNYL 2MCG-BUPIV 0.125% 100 ML EPIDURAL SCH ×2 (11:06→13:54)
[2017-05-01] MEDS ORDERED: LIDOCAINE HCL 1.5% PF SOLN 20 ML AMP ONE (12:56)
--- NOTE | 2017-05-01 13:07 | PD.LABORPN ---
Subjective Subjective Pt co pressure, asking for a redose of epidural Objective Vital Signs Vital Signs Date Time Temp Pulse Resp B/P Pulse Ox O2 Delivery O2 Flow Rate FiO2 05/01/17 12:45 91 05/01/17 12:30 75 05/01/17 12:15 87 143/98 05/01/17 12:00 81 05/01/17 11:45 85 123/93 05/01/17 11:43 98.0 05/01/17 11:30 84 139/86 05/01/17 11:26 98.3 05/01/17 11:15 89 144/74 05/01/17 11:06 18 05/01/17 11:01 99 05/01/17 10:45 81 154/94 05/01/17 10:30 86 144/94 05/01/17 10:20 89 05/01/17 10:15 97 05/01/17 10:15 93 131/95 05/01/17 10:05 97 05/01/17 10:00 101 05/01/17 10:00 98.0 93 148/90 05/01/17 09:46 18 05/01/17 09:45 88 132/82 05/01/17 09:45 78 05/01/17 09:40 75 05/01/17 09:35 99 05/01/17 09:30 75 131/88 05/01/17 09:30 100 05/01/17 09:05 101 05/01/17 09:03 125 140/98 05/01/17 09:00 114 146/81 05/01/17 09:00 136 05/01/17 08:53 20 05/01/17 08:52 92 05/01/17 08:52 147/93 05/01/17 08:50 120 05/01/17 08:50 123 05/01/17 08:45 146/109 05/01/17 08:45 95 05/01/17 08:45 99 05/01/17 08:45 108 05/01/17 07:51 72 145/90 05/01/17 07:50 75 05/01/17 07:45 83 05/01/17 07:15 18 05/01/17 07:11 87 147/104 05/01/17 07:10 98.1 05/01/17 07:10 78 05/01/17 07:00 93 05/01/17 06:55 85 05/01/17 06:40 82 05/01/17 06:38 133/78 05/01/17 06:25 96 05/01/17 06:20 91 05/01/17 06:10 81 05/01/17 05:59 85 141/103 05/01/17 05:40 84 05/01/17 05:39 98.7 18 05/01/17 05:35 85 05/01/17 05:28 139/96 Objective Pelvic Exam: Cervix: 7/100/-1 Dilatation: [-] Effacement: [-] Station: [-] Presentation: [-] Membranes: [intact or ruptured] Uterine Contractions:IUPC with ctxs q 2-3 at 50-60mmhg FHT's: Category: A- 150's with good BTBV , no decels, good accels...B- 140's , hard to trace, good accels and variability Baseline: [-] Reactive: [-] Variability: [-] Decels: [-] Assessment/Plan Problem List: (1) Twin gestation, dichorionic diamniotic (2) 36 weeks gestation of (3) Otitis externa Assessment and Plan Twin gestation at 36wks 5 dys with mild preeclampsia in active labor with good tracings and good progress 1. Expectant management Nini Hinton MD May 01, 2017 13:07
[2017-05-01] MEDS ORDERED: OXYTOCIN 10 UNIT/ML AMP ONE (14:56)
--- NOTE | 2017-05-01 15:28 | PD.OB.DELI ---
Delivery Date: May 01, 2017 Anesthesia: Epidural Episiotomy: None, Midline Vaginal Delivery: Spontaneous Presentation: Occiput anterior, Vertex Nuchal Cord: None Delayed cord clamping (45 sec): No : Male, Female, Multiple One Minute : 7 Five Minute : 9 Weight: 5-3 Placenta: Spontaneous delivery, Intact, 3 vessel cord Laceration: Perineal laceration, 1 deg Repair: Chromic interrupted Additional Information Baby A- male, 5-3 06/09 Baby B female 06/08, no wt at this time Nini Hinton MD May 01, 2017 15:28
[2017-05-01] MEDS ORDERED: MEASLES, MUMPS, RUBELLA VACCINE 0.5 ML VIAL SQ ONE (16:00)
[2017-05-01] MEDS ORDERED: DIPHTH/TETANUS/ACEL PERTUSSIS (BOOSTER) 0.5 ML VIAL/PFS IM ONE (16:00)
[2017-05-01] MEDS: IBUPROFEN 600 MG TAB PO PRN ×2 (16:51→23:42)
[2017-05-01] MEDS ORDERED: oxyCODONE/ACETAMINOPHEN 5 MG/325 MG 2 TABS PO PRN (17:00)
[2017-05-01] MEDS ORDERED: WITCH HAZEL 50%/GLYCERIN 12.5% 40 PAD JAR TOPICAL PRN (17:00)
[2017-05-01] MEDS ORDERED: oxyCODONE/ACETAMINOPHEN 5 MG/325 MG TAB PO PRN (17:00)
[2017-05-01] MEDS ORDERED: BENZOCAINE 20% TOPICAL SPRAY 60 ML CAN TOPICAL PRN (17:00)
[2017-05-01] MEDS ORDERED: ONDANSETRON ODT 4 MG TAB PO PRN (17:00)
[2017-05-01] MEDS ORDERED: ALUMINUM/MAGNESIUM/SIMETH 30 ML CUP PO PRN (17:00)
[2017-05-01] MEDS ORDERED: DOCUSATE SODIUM 50 MG/SENNA 8.6 MG TAB PO PRN (17:00)
[2017-05-01] MEDS ORDERED: ZOLPIDEM TARTRATE 5 MG TAB PO PRN (17:00)
[2017-05-01] MEDS ORDERED: DISCONTINUE ALL PREVIOUS ORDERS ONE (17:00)
[2017-05-01] MEDS: NEOMYCIN/POLYMYXIN/HYDROCORT OTIC SOLN 10 ML BTL RIGHT EAR SCH ×2 (18:00→21:11)
[2017-05-01] MEDS: ACETAMINOPHEN 325 MG TAB PO PRN (21:08)
[2017-05-02 09:22] VITALS: BP 130/95; PULSE 89; RESP 18; TEMP 98
[2017-05-02] MEDS: NEOMYCIN/POLYMYXIN/HYDROCORT OTIC SOLN 10 ML BTL RIGHT EAR SCH ×3 (09:23→19:04)
[2017-05-02] MEDS: ACETAMINOPHEN 325 MG TAB PO PRN (09:23)
--- NOTE | 2017-05-02 12:25 | HHI.OB ---
Subjective Post Day: 1 Remarks Pt doing well, no pain Objective Vitals/I&O Vital Signs Date Time Temp Pulse Resp B/P Pulse Ox O2 Delivery O2 Flow Rate FiO2 05/02/17 09:22 98.0 89 18 05/02/17 09:22 130/95 05/01/17 21:00 98.7 89 18 131/86 05/01/17 17:32 127/95 05/01/17 17:32 98.1 89 18 05/01/17 16:35 98.8 05/01/17 16:35 18 05/01/17 16:30 91 139/79 05/01/17 16:20 18 05/01/17 16:15 105 147/92 05/01/17 16:03 18 05/01/17 16:00 96 154/92 05/01/17 15:50 18 05/01/17 15:45 99 140/96 05/01/17 15:35 98.5 05/01/17 15:33 139/89 05/01/17 15:33 104 05/01/17 15:32 18 05/01/17 14:31 134 162/99 05/01/17 14:00 92 151/105 05/01/17 13:54 18 05/01/17 13:45 85 140/94 05/01/17 13:30 76 133/87 05/01/17 13:15 79 129/85 05/01/17 13:00 98.6 05/01/17 13:00 107 166/109 05/01/17 12:45 91 05/01/17 12:30 75 Objective Remarks GENERAL: Well-nourished, well-developed patient. CARDIOVASCULAR: Regular rate and rhythm without murmurs, gallops, or rubs. RESPIRATORY: Breath sounds equal bilaterally. No accessory muscle use. ABDOMEN/GI: Abdomen soft, non-tender. Fundus: Firm, non-tender at umbilicus. GENITOURINARY: Light to moderate bleeding. EXTREMITIES: No cyanosis or edema, non-tender, without signs of DVT. Medications and IVs Current Medications Medications (Trade) Dose Ordered Sig/Rom Route Start Time Stop Time Status Last Admin (Muri-Lube Oil) 10 ml UNSCH PRN TOPICAL 05/01/17 04:45 (Tylenol) 650 mg Q4H PRN PO 05/01/17 17:00 05/02/17 09:23 (Motrin) 600 mg Q6H PRN PO 05/01/17 17:00 05/01/17 23:42 (Percocet 5-325 Mg) 1 tab Q4H PRN PO 05/01/17 17:00 (Percocet 5-325 Mg) 2 tab Q4H PRN PO 05/01/17 17:00 (Americaine 20% Top Spr) 1 spray Q4H PRN TOPICAL 05/01/17 17:00 (Tucks Pads) 1 applic Q6H PRN TOPICAL 05/01/17 17:00 (Gladys-Colace) 2 tab Q12H PRN PO 05/01/17 17:00 (Ambien) 5 mg HS PRN PO 05/01/17 17:00 (Mag-Al Plus Susp Liq) 15 ml Q8H PRN PO 05/01/17 17:00 (Zofran Odt) 4 mg Q6H PRN PO 05/01/17 17:00 (Cortisporin Otic Soln) 4 drop QID RIGHT EAR 05/01/17 18:00 05/02/17 09:23 Assessment/Plan Problem List: (1) Twin gestation, dichorionic diamniotic (2) 36 weeks gestation of (3) Otitis externa Assessment and Plan PPD # 1 s/p twin gestation...doing well 1. routine care Nini Hinton MD May 02, 2017 12:24
[2017-05-02 17:00] VITALS: BP 142/95; PULSE 83; RESP 18
[2017-05-02] MEDS: IBUPROFEN 600 MG TAB PO PRN ×2 (17:01→23:23)
[2017-05-02 19:41] VITALS: BP 150/97; PULSE 81; RESP 16; TEMP 98
[2017-05-03] MEDS: IBUPROFEN 600 MG TAB PO PRN ×2 (07:08→13:58)
--- NOTE | 2017-05-03 11:56 | HHI.DS ---
Admission Date April 30, 2017 at 14:47 Discharge Date: May 03, 2017 Admitting Diagnosis Twin gestation 36 wks with mild preeclampsia Diagnosis: Delivery Date: May 01, 2017 Vaginal Delivery: Normal : Male, Female, Multiple Brief History otitis externa and doing well. she Pt Condition on Discharge: Good Discharge Disposition: Discharge Home Discharge Instructions Diet Instructions: As Tolerated, No Restrictions Activities You Can Perform: Pelvic Rest Nini Hinton MD May 03, 2017 11:56
== END 2017-05-03 15:14 | disposition home or self-care (01) | DRG 775 ==
LOC: NEPK 07:00 → H2EA 10:09 → OBSVTOIN 04-30 14:47 → H2EB 05-01 04:59 → H1EA 05-01 17:19
PROVIDERS: ADMIT Obstetrics & Gynecology; ATTEND Obstetrics & Gynecology
PROC: 10E0XZZ Delivery of Products of Conception, External Approach (ICD-10-PCS; principal; 2017-05-01)
PROC: 0HQ9XZZ Repair Perineum Skin, External Approach (ICD-10-PCS; 2017-05-01)
PROC: 3E033VJ Introduction of Other Hormone into Peripheral Vein, Percutaneous Approach (ICD-10-PCS; 2017-05-01)
DX: O14.04 Mild to moderate pre-eclampsia, complicating childbirth (principal); Z37.2 Twins, both liveborn; O75.89 Other specified complications of labor and delivery; Z3A.36 36 weeks gestation of pregnancy; H60.93 Unspecified otitis externa, bilateral; O70.0 First degree perineal laceration during delivery; O99.344 Other mental disorders complicating childbirth; F41.0 Panic disorder [episodic paroxysmal anxiety]
CPT/HCPCS: 59025; 76819; 76820; 80048; 80053; 81001; 84157; 84550; 85025; 85027; 88307; 90707; 90715; 96360; G0378; J2590; J3010; J7040; J7120

== ENCOUNTER 2017-11-02 12:43 | Emergency (ER) | payer MEDICAID, OTHER ==
[~2017-11-02] VITALS: Ht 160 cm; Wt 76.0 kg
[~2017-11-02 12:43] MED LIST changes: +CIPR0.3S EACH EAR; -METO10TA PO
[2017-11-02 12:45] VITALS: BP 132/78; PULSE 102; RESP 12; TEMP 97.7; O2SAT 99
[2017-11-02] MEDS ORDERED: DEPO150I IM (13:27)
[2017-11-02] MEDS ORDERED: AUGM875T3 PO (14:04)
[2017-11-02] MEDS ORDERED: MAGICADU2 SWISH-SWAL (14:04)
--- NOTE | 2017-11-02 14:04 | PD ---
HPI Chief Complaint: Cold / Flu Symptoms Time Seen by Provider: 13:46 Travel History International Travel<30 days: No Contact w/Intl Traveler<30days: No Traveled to known affect area: No History of Present Illness HPI patient has been sick for over 10 days with initially diagnosed viral syndrome....which has been improving however, now 2 days of sore throat and white patches on back of throat also...pt deneis any n/v/d/cp/abdpain/back pain PFSH Past Medical History Hx Anticoagulant Therapy: No Anxiety: Yes (PANIC ATTACKS) Cardiovascular Problems: No Chemotherapy: No Cerebrovascular Accident: No Developmental Delay: No Diabetes: No Diminished Hearing: No Respiratory: No Immunizations Current: Yes ?: Unknown : 3 Para: 2 Ovarian Cysts: Yes Tubal Ligation: No Past Surgical History Hysterectomy: No Social History Alcohol Use: No Tobacco Use: Yes Substance Use: No Allergies-Medications (Allergen,Severity, Reaction): Coded Allergies: No Known Allergies (Verified , 09/26/16) Reported Meds & Prescriptions Reported Meds & Active Scripts Active Magic Mouthwash Adult Liq (Multi-Ingredient Mouthwash/Gargle) 120 Ml Susp 10 Ml SWISH-SWAL ACHS Each 5mL contains: Nystatin 200,000units, Diphenhydramine 4.25mg, Viscous Lidocaine 10mg, Wahl syrup 0.8 mL Augmentin (Amoxicillin-Clavulanate) 875-125 Mg Tab 1 Tab PO BID 7 Days Reported Depo-Provera Inj (Medroxyprogesterone Inj) 150 Mg/Ml Inj 150 Mg IM Q90D Review of Systems General / Constitutional: No: Fever Eyes: No: Visual changes HENT: Positive: Sore Throat Cardiovascular: No: Chest Pain or Discomfort Respiratory: No: Shortness of Breath Gastrointestinal: No: Abdominal Pain Genitourinary: No: Dysuria Musculoskeletal: No: Pain Skin: No Rash Neurologic: No: Weakness Psychiatric: No: Depression Endocrine: No: Polydipsia Hematologic/Lymphatic: No: Easy Bruising Physical Exam Narrative GENERAL: SKIN: Warm and dry. HEAD: Atraumatic. Normocephalic. EYES: Pupils equal and round. No scleral icterus. No injection or drainage. ENT: No nasal bleeding or discharge. Mucous membranes pink and moist. erythematous oropharynx with exudate, bilateral cervical lad, NECK: Trachea midline. No JVD. CARDIOVASCULAR: Regular rate and rhythm. RESPIRATORY: No accessory muscle use. Clear to auscultation. Breath sounds equal bilaterally. GASTROINTESTINAL: Abdomen soft, non-tender, nondistended. Hepatic and splenic margins not palpable. MUSCULOSKELETAL: Extremities without clubbing, cyanosis, or edema. No obvious deformities. NEUROLOGICAL: Awake and alert. No obvious cranial nerve deficits. Motor grossly within normal limits. Five out of 5 muscle strength in the arms and legs. Normal speech. PSYCHIATRIC: Appropriate mood and affect; insight and judgment normal. Data Data Last Documented VS Orders Orders Ed Discharge Order (11/02/17 14:04) MDM Medical Decision Making Medical Screen Exam Complete: Yes Emergency Medical Condition: Yes Medical Record Reviewed: Yes Differential Diagnosis pharyngitis v tonsillitis Narrative Course AFTER CLINICAL EVALUATION, NO ENLARGED TONSILS, BUT DID NOTICE EXUDATIVE PHARYNGITIS, WILL D/C WITH ABX Diagnosis Primary Impression: Strep pharyngitis Patient Instructions: General Instructions, Strep Throat (ED) Scripts Vgxmroqt-Xwjsahluzqvaiul-Ayuslhtag Liq (Magic Mouthwash Adult Liq) 120 Ml Susp 10 ML SWISH-SWAL ACHS for Mouth sores, #120 ML 0 Refills Each 5mL contains: Nystatin 200,000units, Diphenhydramine 4.25mg, Viscous Lidocaine 10mg, Wahl syrup 0.8 mL Prov: Tee Seaman MD 11/02/17 Amoxicillin-Clavulanate (Augmentin) 875-125 Mg Tab 1 TAB PO BID for Infection for 7 Days, #14 TAB 0 Refills Prov: Tee Seaman MD 11/02/17 Disposition: 01 DISCHARGE HOME Condition: Stable Tee Seaman MD Nov 02, 2017 14:04
== END 2017-11-02 14:30 | disposition home or self-care (01) ==
LOC: NEPD 12:43
DX: J02.0 Streptococcal pharyngitis (principal); Z72.0 Tobacco use; Z86.59 Personal history of other mental and behavioral disorders
CPT/HCPCS: 99284

== ENCOUNTER 2017-12-19 13:15 | Emergency (ER) | payer MEDICAID ==
[~2017-12-19 13:15] MED LIST changes: +AUGM875T3 PO; -CIPR0.3S EACH EAR; +DEPO150I IM; +MAGICADU2 SWISH-SWAL
[2017-12-19 13:19] VITALS: BP 140/78; PULSE 104; RESP 20; TEMP 99
--- NOTE | 2017-12-19 13:52 | PD ---
HPI Chief Complaint: Cold / Flu Symptoms Time Seen by Provider: 13:36 Travel History International Travel<30 days: No Contact w/Intl Traveler<30days: No Traveled to known affect area: No History of Present Illness HPI 22-year-old female smoker presents for evaluation. For 2 days she has had cough , congestion, fevers. She's had some nausea and 2 episodes of vomiting. Her son has had similar symptoms. No alleviating factors. Denies diarrhea, rash, recent travel, abdominal pain. No other complaints. PFSH Past Medical History Hx Anticoagulant Therapy: No Anxiety: Yes (PANIC ATTACKS) Cardiovascular Problems: No Chemotherapy: No Cerebrovascular Accident: No Developmental Delay: No Diabetes: No Diminished Hearing: No Respiratory: No Immunizations Current: Yes Tetanus Vaccination: < 5 Years Influenza Vaccination: No ?: Not : 3 Para: 2 Ovarian Cysts: Yes Tubal Ligation: No Past Surgical History Hysterectomy: No Social History Alcohol Use: No Tobacco Use: No Substance Use: No Allergies-Medications (Allergen,Severity, Reaction): Coded Allergies: No Known Allergies (Verified , 09/26/16) Reported Meds & Prescriptions Reported Meds & Active Scripts Active Tamiflu (Oseltamivir Phosphate) 75 Mg Cap 75 Mg PO BID 5 Days Review of Systems Except as stated in HPI: all other systems reviewed are Neg Physical Exam Narrative GENERAL: Well-developed well-nourished female in no acute distress SKIN: Warm and dry. HEAD: Atraumatic. Normocephalic. EYES: Pupils equal and round. No scleral icterus. No injection or drainage. ENT: No nasal bleeding or discharge. Mucous membranes pink and moist. No oral pharyngeal erythema or exudate. Tympanic membranes appear normal. NECK: Trachea midline. No JVD. No lymphadenopathy CARDIOVASCULAR: Regular rate and rhythm. No murmur appreciated. RESPIRATORY: No accessory muscle use. Clear to auscultation. Breath sounds equal bilaterally. No crackles no wheezing or rhonchi GASTROINTESTINAL: Abdomen soft, non-tender, nondistended. Hepatic and splenic margins not palpable. Data Data Last Documented VS Vital Signs Date Time Temp Pulse Resp B/P (MAP) Pulse Ox O2 Delivery O2 Flow Rate FiO2 12/19/17 13:41 99 Room Air 12/19/17 13:19 99.0 104 20 140/78 (98) Orders Orders Influenzae A/B Antigen (12/19/17 13:37) Ondansetron Odt (Zofran Odt) (12/19/17 14:00) Ed Discharge Order (12/19/17 14:15) [facility] Medical Decision Making Medical Screen Exam Complete: Yes Emergency Medical Condition: Yes Medical Record Reviewed: Yes Differential Diagnosis Influenza, bronchitis, pneumonia, pharyngitis, otitis media Narrative Course 22-year-old female with 2 days of cold and flu symptoms. She appears well. She is positive for influenza A. Discharged with Tamiflu. Diagnosis Primary Impression: Influenza A Additional Instructions: Medication as prescribed. Stay well hydrated well-nourished, get plenty of rest. Tylenol and Motrin for fever per dosing instructions on the bottle. Return for any emergent medical conditions. Med/Other Pt SpecificInfo: Prescription(s) given Scripts Oseltamivir (Tamiflu) 75 Mg Cap 75 MG PO BID for Mgmt Viral Infection for 5 Days, #10 CAP 0 Refills Prov: Rupert Barnes MD 12/19/17 Disposition: 01 DISCHARGE HOME Condition: Stable Hayden Carpenter Dec 19, 2017 13:52
[2017-12-19] MEDS ORDERED: ONDANSETRON ODT 4 MG TAB PO ONE (14:00)
[2017-12-19] MEDS ORDERED: OSEL75 PO (14:12)
[2017-12-23] MEDS ORDERED: AUGM875T3 PO (21:35)
[2017-12-23] MEDS ORDERED: CIPR0.3S EACH EAR (21:35)
== END 2017-12-19 14:24 | disposition home or self-care (01) ==
LOC: PHEFT 13:15
DX: J10.1 Influenza due to other identified influenza virus with other respiratory manifestations (principal); F17.210 Nicotine dependence, cigarettes, uncomplicated
CPT/HCPCS: 87804; 99283

== ENCOUNTER 2017-12-23 19:53 | Emergency (ER) | payer MEDICAID ==
[2017-12-23] MEDS: AMOXICILLIN/CLAVULANATE K 875 MG TAB PO (21:57)
[2017-12-23] MEDS: NEOMYCIN/POLYMYXIN/HYDROCORT OTIC SOLN 10 ML BTL EACH EAR (21:58)
== END 2017-12-23 22:25 | disposition home or self-care (01) ==
LOC: PHED 19:53
DX: H66.93 Otitis media, unspecified, bilateral (principal); F41.0 Panic disorder [episodic paroxysmal anxiety]; Z79.899 Other long term (current) drug therapy
CPT/HCPCS: 99283

== ENCOUNTER 2018-04-03 08:47 | Emergency (ER) | payer MEDICAID ==
[~2018-04-03] VITALS: Ht 157.5 cm; Wt 83.1 kg
[~2018-04-03 08:47] MED LIST changes: +CIPR0.3S EACH EAR; -DEPO150I IM; -MAGICADU2 SWISH-SWAL; +OSEL75 PO
[2018-04-03 08:57] VITALS: BP 143/82; PULSE 91; RESP 16; TEMP 99.1; O2SAT 98
--- NOTE | 2018-04-03 09:52 | PD ---
HPI Chief Complaint: Cold / Flu Symptoms Time Seen by Provider: 09:17 Travel History International Travel<30 days: No Contact w/Intl Traveler<30days: No Traveled to known affect area: No History of Present Illness HPI Patient comes in complaining of bilateral ear aches, resolved sore throat, but still persistent cough, she had all these symptoms about a week and a half ago when some symptoms improved but some remain. The main one that remains her her earaches and her productive cough of yellowish sputum. Patient denies any alleviating or aggravating factors. Patient denies any associated factors such as fever/rash/chest pain/back pain/flank pain/nausea/vomiting/diarrhea. No known drug allergy Past medical history significant for anxiety and smokes half a pack a day PFSH Past Medical History Hx Anticoagulant Therapy: No Anxiety: Yes (PANIC ATTACKS) Cardiovascular Problems: No Chemotherapy: No Cerebrovascular Accident: No Developmental Delay: No Diabetes: No Diminished Hearing: No Respiratory: No Immunizations Current: Yes ?: Not LMP: 03/14/18 : 3 Para: 4 Ovarian Cysts: Yes Tubal Ligation: No Past Surgical History Hysterectomy: No Social History Alcohol Use: No Tobacco Use: Yes (12PPD) Substance Use: No Allergies-Medications (Allergen,Severity, Reaction): Coded Allergies: No Known Allergies (Verified Adverse Reaction, Unknown, 04/03/18) Reported Meds & Prescriptions Reported Meds & Active Scripts Active No Active Prescriptions or Reported Medications Review of Systems General / Constitutional: No: Fever Eyes: No: Visual changes HENT: Positive: Earache Cardiovascular: No: Chest Pain or Discomfort Respiratory: Positive: Cough Gastrointestinal: No: Abdominal Pain Genitourinary: No: Dysuria Musculoskeletal: No: Pain Skin: No Rash Neurologic: No: Weakness Psychiatric: No: Depression Endocrine: No: Polydipsia Hematologic/Lymphatic: No: Easy Bruising Physical Exam Narrative GENERAL: SKIN: Warm and dry. HEAD: Atraumatic. Normocephalic. EYES: Pupils equal and round. No scleral icterus. No injection or drainage. ENT: No nasal bleeding or discharge. Mucous membranes pink and moist. Bilateral external auditory canals are erythematous and edematous, no drainage, bilateral TMs are also erythematous with loss of light reflex NECK: Trachea midline. No JVD. CARDIOVASCULAR: Regular rate and rhythm. RESPIRATORY: No accessory muscle use. Clear to auscultation. Breath sounds equal bilaterally. GASTROINTESTINAL: Abdomen soft, non-tender, nondistended. MUSCULOSKELETAL: Extremities without clubbing, cyanosis, or edema. No obvious deformities. NEUROLOGICAL: Awake and alert. No obvious cranial nerve deficits. Motor grossly within normal limits. Five out of 5 muscle strength in the arms and legs. Normal speech. PSYCHIATRIC: Appropriate mood and affect; insight and judgment normal. Data Data Last Documented VS Vital Signs Date Time Temp Pulse Resp B/P (MAP) Pulse Ox O2 Delivery O2 Flow Rate FiO2 04/03/18 08:57 99.1 91 16 143/82 (102) 98 Orders Orders Urinalysis - C+S If Indicated (04/03/18 09:17) Ed Urine Pregnancytest Poc (04/03/18 09:17) Urine Culture (04/03/18 09:40) Labs Laboratory Tests Test 04/03/18 09:40 Urine Collection Type CLEAN CATCH Urine Color YELLOW Urine Turbidity SL CLOUDY Urine pH 7.0 Urine Specific [place] 1.020 Urine Protein NEG mg/dL Urine Glucose (UA) NEG mg/dL Urine Ketones NEG mg/dL Urine Occult Blood NEG Urine Nitrite POS Urine Bilirubin NEG Urine Urobilinogen 1.0 MG/DL Urine Leukocyte Esterase TRACE Urine WBC 6-8 /hpf Urine Squamous Epithelial Cells > 8 /hpf Urine Bacteria MOD /hpf Microscopic Urinalysis Comment CULTURE INDICATED Urine Collection Time 09:40 [facility] Medical Decision Making Medical Screen Exam Complete: Yes Emergency Medical Condition: Yes Medical Record Reviewed: Yes Differential Diagnosis Pneumonia versus bronchospasm versus pleural effusion versus consolidation Narrative Course test is negative UA is consistent with a UTI Diagnosis Primary Impression: Bilateral otitis externa and media Additional Impressions: Acute bacterial bronchitis UTI Patient Instructions: Acute Bronchitis (ED), Ear Infection (ED), General Instructions, Urinary Tract Infection in Women (DC) Scripts Tramadol (Ultram) 50 Mg Tab 50 MG PO Q8H Y for PAIN, #10 TAB 0 Refills Prov: Tee Seaman MD 04/03/18 Fluconazole (Fluconazole) 150 Mg Tab 150 MG PO ONCE for Infection, #1 TAB 0 Refills Prov: Tee Seaman MD 04/03/18 Ciprofloxacin (Cipro) 500 Mg Tab 500 MG PO BID for Infection for 10 Days, #20 TAB 0 Refills Prov: Tee Seaman MD 04/03/18 Disposition: 01 DISCHARGE HOME Condition: Stable Tee Seaman MD April 03, 2018 09:52
[2018-04-03 10:04] LABS: BILIRUBIN, URINE NEG (NEG); BLOOD, URINE NEG (NEG); GLUCOSE,URINE NEG (NEG); KETONE, URINE NEG (NEG); NITRITE,URINE POS (NEG); URINE COLOR YELLOW (YELLW/STRAW); URINE LEUKOCYTE ESTERASE TRACE (NEG)
[2018-04-03 10:11] LABS: BACTERIA, URINE MOD /hpf; SQUAMOUS EPITHELIAL CELL URINE > 8 /hpf (0-5)
[2018-04-03] MEDS ORDERED: FLUC150T PO (10:26)
[2018-04-03] MEDS ORDERED: CIPR-9 PO (10:26)
[2018-04-03] MEDS ORDERED: TRAM50 PO (10:26)
== END 2018-04-03 11:20 | disposition home or self-care (01) ==
LOC: PHED 08:47
DX: H60.93 Unspecified otitis externa, bilateral (principal); H66.93 Otitis media, unspecified, bilateral; B96.89 Other specified bacterial agents as the cause of diseases classified elsewhere; J20.8 Acute bronchitis due to other specified organisms; N39.0 Urinary tract infection, site not specified; F41.9 Anxiety disorder, unspecified; F41.0 Panic disorder [episodic paroxysmal anxiety]; F17.200 Nicotine dependence, unspecified, uncomplicated
CPT/HCPCS: 81001; 84703; 87086; 99283

== ENCOUNTER 2018-04-09 09:09 | Emergency (ER) | payer MEDICAID ==
[~2018-04-09 09:09] MED LIST changes: -AUGM875T3 PO; +CIPR-9 PO; -CIPR0.3S EACH EAR; +FLUC150T PO; -OSEL75 PO; +TRAM50 PO
[2018-04-09 09:18] VITALS: BP 140/74; PULSE 100; RESP 20; TEMP 98.3; O2SAT 100
--- NOTE | 2018-04-09 09:48 | PD ---
HPI Chief Complaint: Cold / Flu Symptoms Time Seen by Provider: 09:23 Travel History International Travel<30 days: No Contact w/Intl Traveler<30days: No Traveled to known affect area: No History of Present Illness HPI 22 year-old female presents to the emergency room for evaluation of nonproductive cough, chest tightness, bilateral earache, and sore throat for the past 2 weeks. Patient came to the emergency room 1 week ago for the same symptoms and was given a prescription for ciprofloxacin. She filled the prescription but never took it because she was concerned about the side effects. She has had no fever, chills, nausea, vomiting. She has not been taking anything [id number] for her symptoms. States she is concerned because multiple people in her house have pneumonia. She denies any chronic medical conditions or daily medications. Denies possibility of . History Past Medical Histgory Tetanus Vaccination: < 5 Years Hx Chemotherapy: No Social History Alcohol Use: No Tobacco Use: Yes (1/2PPD) Allergies-Medications (Allergen,Severity, Reaction): Coded Allergies: No Known Allergies (Verified Adverse Reaction, Unknown, 04/09/18) Reported Meds & Prescriptions Reported Meds & Active Scripts Active Ultram (Tramadol HCl) 50 Mg Tab 50 Mg PO Q8H PRN Fluconazole 150 Mg Tab 150 Mg PO ONCE Cipro (Ciprofloxacin HCl) 500 Mg Tab 500 Mg PO BID 10 Days Review of Systems Except as stated in HPI: all other systems reviewed are Neg Physical Exam Narrative GENERAL: Well-nourished, well-developed female no acute distress. Afebrile. Ambulatory. SKIN: Focused skin assessment warm/dry. HEAD: Normocephalic. EYES: No scleral icterus. No injection or drainage. ENT: Mucosa pink and moist. No erythema, edema, or exudates. No uvular edema. No uvular, palatal, or tonsillar deviation. Airway patent. Nasal turbinates appear normal without nasal blood, purulent drainage or septal hematoma. NECK: Supple, trachea midline. No JVD or lymphadenopathy. CARDIOVASCULAR: Regular rate and rhythm without murmurs, gallops, or rubs. RESPIRATORY: Breath sounds equal bilaterally. No accessory muscle use. No crackles, rales, wheezes, rhonchi. Data Data Last Documented VS Vital Signs Date Time Temp Pulse Resp B/P (MAP) Pulse Ox O2 Delivery O2 Flow Rate FiO2 04/09/18 09:18 98.3 100 20 140/74 (96) 100 MDM Medical Screen Exam Complete: Yes Emergency Medical Condition: No Differential Diagnosis Otitis media, otitis externa, upper respiratory infection Narrative Course 22-year-old female presents to the emergency room for cough and cold symptoms for the past 2 weeks. She was seen previously for this and prescribed ciprofloxacin but never took it because she is concerned about the side effects. Patient is afebrile and well-appearing in the emergency room. Vital signs stable. Lung sounds clear and equal bilaterally. There is no erythema, edema, or exudates of the pharynx or tonsils. No sinus pressure. The left tympanic membrane has a slight effusion but there is no evidence of otitis media. Patient told to follow-up with a primary care physician if symptoms persist or return for worsening symptoms. There are no urgent or emergent medical conditions at this time. A medical screening exam was performed: At the time of evaluation the presenting medical condition was determined not to be of an emergent nature. The patient was given the option of receiving additional care, but declined. Patient was given options for additional community resources from which to obtain care. The Patient Has Been advised to seek medical attention for their presenting complaint. The patient has been advised to return to the ER at any time if an emergent condition develops. Primary Impression: Encounter for medical screening examination Disposition: 01 DISCHARGE HOME Condition: Stable Kirti Case April 09, 2018 09:48
== END 2018-04-09 09:53 | disposition left against medical advice (07) ==
LOC: NEPD 09:09
DX: R05 Cough (principal)
CPT/HCPCS: 99281